=== PATIENT | female | born 1935 | race Caucasian/White ===

== ENCOUNTER 2019-04-18 23:43 | Emergency (ER) | payer MEDICARE, MEDICAID ==
[~2019-04-18] VITALS: Ht 152.4 cm; Wt 68.0 kg
[2019-04-19] MEDS ORDERED: TRAMADOL 50MG TABLET PO ONE (01:30)
[2019-04-19 02:16] VITALS: BP 138/43
== END 2019-04-19 02:17 | disposition home or self-care (01) ==
LOC: ER 23:43
DX: G89.29 Other chronic pain (principal); M54.9 Dorsalgia, unspecified; E11.9 Type 2 diabetes mellitus without complications; I10 Essential (primary) hypertension; Z86.73 Personal history of transient ischemic attack (TIA), and cerebral infarction without residual deficits; Z96.649 Presence of unspecified artificial hip joint; W22.8XXA Striking against or struck by other objects, initial encounter; Y93.89 Activity, other specified; Y92.89 Other specified places as the place of occurrence of the external cause; Y99.8 Other external cause status
CPT/HCPCS: 99283

== ENCOUNTER 2019-06-05 17:42 | Emergency (ER) | payer MEDICARE, MEDICAID ==
[~2019-06-05] VITALS: Ht 157.5 cm; Wt 61.0 kg
[2019-06-05] MEDS ORDERED: ACETAMINOPHEN 325MG TABLET PO ONE (19:00)
[2019-06-06 01:00] VITALS: BP 140/60
== END 2019-06-06 00:52 ==
LOC: ER 17:42
DX: S00.03XA Contusion of scalp, initial encounter (principal); I10 Essential (primary) hypertension; E11.9 Type 2 diabetes mellitus without complications; W01.0XXA Fall on same level from slipping, tripping and stumbling without subsequent striking against object, initial encounter; Y93.9 Activity, unspecified; Y92.9 Unspecified place or not applicable; Z86.73 Personal history of transient ischemic attack (TIA), and cerebral infarction without residual deficits; Z96.649 Presence of unspecified artificial hip joint
CPT/HCPCS: 99284